=== PATIENT | male | born 1990 | race Two or more races ===

== ENCOUNTER 2022-04-27 17:21 | Emergency (ER) | payer BC, OTHER ==
[~2022-04-27] VITALS: Ht 175.3 cm; Wt 100.0 kg
[2022-04-27 18:22] VITALS: BP 96/55
[2022-04-27 19:08] LABS: Basophils % (auto) 0.3 % (0.0-2.0); Eosinophils % (auto) 1.4 % (0.0-7.0); Lymphocytes # (auto) 1.5 10 ^3/uL (0.4-5.4); Lymphocytes % (auto) 13.8 % (10.0-50.0); Monocytes % (auto) 8.5 % (0.0-12.0); Neutrophils # (auto) 8.1 10 ^3/uL (1.6-8.6); Nucleated Red Blood Cells % 0.1 %; White Blood Cell 10.7 10^3/uL (4.4-10.8)
[2022-04-27 19:09] LABS: Basophils # (auto) 0 10 ^3/uL (0-0.2); Eosinophils # (auto) 0.2 10 ^3/uL (0-0.8); Hematocrit 47.5 % (41.0-53.0); Hemoglobin 16.2 g/dL (13.5-17.5); Mean Corpuscular Hemoglobin 29.8 pg (28.0-32.0); Mean Corpuscular Hgb Conc. 34.1 g/dL (32.0-36.0); Mean Corpuscular Volume 87.6 fL (80.0-100.0); Monocytes # (auto) 0.9 10 ^3/uL (0-1.3); Red Blood Cells 5.43 10^6/uL (4.5-5.90); Red Cell Distribution Width 13.5 % (11.8-14.3)
[2022-04-27 19:34] LABS: INR 0.93 (0.9-1.15); Partial Thromboplastin Time 25.1 sec (24.6-33.4)
[2022-04-27 19:46] LABS: Albumin 3.9 g/dL (3.4-5.0); BUN/Creatinine Ratio 24.5; Bilirubin, Total 0.4 mg/dL (0.2-1.0); Calcium 8.9 mg/dL (8.5-10.1); Magnesium 2.9 mg/dL (1.6-2.6); Potassium 3.5 mmol/L (3.5-5.1); Total Protein 7.9 g/dL (6.4-8.2)
[2022-04-27] MEDS ORDERED: LIDOCAINE 1% HCL (LOCAL ANESTH.) INJ 20ML MDV ONE (20:42)
== END 2022-04-27 23:32 | disposition home or self-care (01) ==
LOC: ER 17:21
DX: S01.01XA Laceration without foreign body of scalp, initial encounter (principal); S01.111A Laceration without foreign body of right eyelid and periocular area, initial encounter; F15.10 Other stimulant abuse, uncomplicated; R55 Syncope and collapse; W18.09XA Striking against other object with subsequent fall, initial encounter; Y93.89 Activity, other specified; Y92.89 Other specified places as the place of occurrence of the external cause; Y99.8 Other external cause status
CPT/HCPCS: 12001; 12011; 36415; 70450; 71045; 72125; 80053; 83735; 84484; 85025; 85610; 85730; 93005; 99285; J2001